=== PATIENT | male | born 1970 | race African-American/Black ===

== ENCOUNTER 2020-09-23 20:46 | Inpatient (IN) | payer OTHER ==
[2020-09-23 22:33] VITALS: BMI 26.6
[2020-09-23] MEDS ORDERED: P-EPHED 60MG/TRIPROLIDI 2.5MG TABLET PO PRN (22:45)
[2020-09-23] MEDS ORDERED: MENTHOL/PHENOL 1 EACH UD MM PRN (22:45)
[2020-09-23] MEDS ORDERED: IBUPROFEN 400 MG TABLET (FP) PO PRN (22:45)
[2020-09-23] MEDS ORDERED: ONDANSETRON *ODT* 4 MG TABLET SL PRN (22:45)
[2020-09-23] MEDS ORDERED: MAGNESIUM HYDROX 2400MG/30ML ORAL SUSPENSION 30 ML CUP PO PRN (22:45)
[2020-09-23] MEDS ORDERED: MAGNESIUM CITRATE 300 ML BOTTLE PO PRN (22:45)
[2020-09-23] MEDS ORDERED: DICYCLOMINE HCL 10 MG CAPSULE PO PRN (22:45)
[2020-09-23] MEDS ORDERED: ACETAMINOPHEN 325 MG TABLET (FP) PO PRN ×2 (22:45)
[2020-09-23] MEDS ORDERED: MAG HYDROX/AL HYDROX/SIMETH 30 ML UNIT-DOSE CUP PO PRN (22:45)
[2020-09-23] MEDS ORDERED: METHOCARBAMOL 500 MG TABLET PO PRN (22:45)
[2020-09-23] MEDS ORDERED: BISMUTH SUBSALICYLATE 524 MG/30 ML PO PRN (22:45)
[2020-09-23] MEDS ORDERED: guaiFENesin 200 MG/10 ML 10 ML UNIT-DOSE CUPS PO PRN (22:45)
[2020-09-23] MEDS ORDERED: NICOTINE POLACRILEX 2 MG GUM BUC PRN (22:53)
[2020-09-24] MEDS: hydrOXYzine PAMOATE 25 MG CAPSULE (FP) PO PRN ×2 (01:23→11:01)
[2020-09-24] MEDS ORDERED: NICOTINE 21 MG/24 HOURS TOPICAL PATCH TD SCH (10:00)
[2020-09-24] MEDS ORDERED: PRENATAL VITAMINS W/ FOLIC ACID TABLET (FP) PO SCH (10:00)
[2020-09-24] MEDS ORDERED: metFORMIN HCL 500 MG TABLET (FP) PO SCH (10:00)
[2020-09-24 11:03] LABS: HEMATOCRIT 39.4 % (35.4-49); MCH 29.9 pg (25.7-33.7); MCHC 33.1 g/dl (32.0-35.9); MEAN CELL VOLUME 90.3 fl (80-96); MEAN PLT VOLUME 9.3 fl (7.5-11.1); PLATELET COUNT 215 10^3/uL (134-434); RBC 4.37 M/mm3 (4.00-5.60); RDW 13.7 % (11.9-15.9); WHITE BLOOD COUNT 7.6 K/mm3 (4.0-10.0)
[2020-09-24 11:22] LABS: CALCIUM 9.2 mg/dL (8.5-10.1)
[2020-09-24 11:23] LABS: ALBUMIN 3.4 g/dl (3.4-5.0); BLOOD UREA NITROGEN 8.8 mg/dL (7-18)
[2020-09-24 11:26] LABS: CREATININE 0.7 mg/dL (0.55-1.3)
[2020-09-24 11:27] LABS: BILIRUBIN,TOTAL 0.6 mg/dL (0.2-1); TOT PROT 6.8 g/dl (6.4-8.2)
[2020-09-24 13:13] VITALS: BP 124/77; PULSE 82; TEMP 97.1
[2020-09-24] MEDS ORDERED: MELATONIN 5 MG TABLETS PO SCH (22:00)
[2020-09-24] MEDS ORDERED: THIAMINE HCL 100 MG TABLET (FP) PO SCH (22:00)
== END 2020-09-24 15:10 | disposition home or self-care (01) | DRG 775 ==
LOC: YASAS 20:46 → Y3N 23:31 → UNDOADMIN 23:31 → Y3N 23:40
PROVIDERS: ADMIT Allergy & Immunology; ATTEND Allergy & Immunology
PROC: HZ2ZZZZ Detoxification Services for Substance Abuse Treatment (ICD-10-PCS; principal; 2020-09-23)
DX: F10.230 Alcohol dependence with withdrawal, uncomplicated (principal); F17.210 Nicotine dependence, cigarettes, uncomplicated; E11.9 Type 2 diabetes mellitus without complications; Z79.84 Long term (current) use of oral hypoglycemic drugs; E78.00 Pure hypercholesterolemia, unspecified; Z87.19 Personal history of other diseases of the digestive system; Z91.14 Patient's other noncompliance with medication regimen
CPT/HCPCS: 36415; 80053; 82962; 85027; 86780; C9803; U0003; U0005